=== PATIENT | male | born 1970 | race Caucasian/White ===

== ENCOUNTER 2017-07-26 16:14 | Emergency (ER) | payer MEDICARE ==
--- NOTE | ~2017-07-26 | CR72 ---
[facility]. [facility] A Service [facility] RADIOLOGY TEXT RESULTS PATIENT: BRISA TEMPLE LOCATION: SED : 70 UNIT #: [id number] AGE: [address]: RANDY GALARZA SEX: M ORDER DR: [id number] [place] [address] [id number] E MR#: [id number] Acc #: [id number] NAME: BRISA TEMPLE : 1970 SEX: M STUDY DATE/TIME: 07/26/2017 17:28 UNIT: SED ROOM: STUDY DESCRIPTION: CR Chest Single View Portable Attending Physician: Randy Galarza Aprn Ordering Physician: Randy Galarza Aprn Primary Care Physician: Randy Gordon A.P.R.N. MEDICAL IMAGING REPORT This report is preliminary unless electronic signature is present. EXAM Portable chest. INDICATIONS Cough. Mid-back pain since yesterday. FINDINGS A portable view of the chest was obtained. The patient is in the lordotic position. The lungs appear clear. The heart size and vascularity are normal. IMPRESSION The study is somewhat limited by the patient's large size and by the fact that he is in the extremely lordotic position. No infiltrates are visible. Increased density in the right medial costophrenic angle is probably due to normal structures such as pericardial fat. Possible upright PA and lateral views of the chest would be useful. Dictated by... Pepe España M.D. THIS IS AN ELECTRONICALLY VERIFIED REPORT Pepe España M.D. at 07/27/2017 7:57 PM FREDY/terrence TD: 07/27/2017 13:25 JOB #: [id number] [facility] A Service [facility] RADIOLOGY TEXT RESULTS PATIENT: BRISA TEMPLE LOCATION: SED : 70 UNIT #: [id number] AGE: [address]: RANDY GALARZA SEX: M ORDER DR: MEDICAL IMAGING REPORT Page 1 of 1
--- NOTE | ~2017-07-26 | EKG ---
PATIENT: BRISA TEMPLE UNIT #: [id number] Ventricular Rate: 90 BPM Atrial Rate: 90 BPM P-R Interval: 158 ms QRS Duration: 68 ms Q-T Interval: 366 ms QTC Calculation(Bezet): 447 ms P Hickman: 56 degrees Calculated R Hickman: 51 degrees Calculated T Hickman: 52 degrees Diagnosis Line: Normal sinus rhythm Diagnosis Line: Normal ECG Diagnosis Line: When compared with ECG of 28-MAY-2012 21:00, Diagnosis Line: No significant change was found Diagnosis Line: Confirmed by SIERRA JOHN MD ([id number]) on 07/31/2017 Diagnosis Line: 7:28:10 PM INTERPRETING MD: DORA MURILLO
[~2017-07-26 16:14] MED LIST: ALBUTEROL17 GM INH; AMLODIPINE BESYL5 MG PO; ANTIDIARRHEAL2 MG PO; BENZONATATE PO; LIPITOR PO; LOPRESSOR PO; LORTAB 5/500 TA1 TA2 PO; LORTAB 7.5-5001 TAB PO; NAPROSYN375 MG PO; OMEPRAZOLE40 M1 PO; PRINIVIL40 MG PO; ZYRTEC10 M2 PO
[2017-07-26] MEDS ORDERED: ANTIDEPRESSANT PO (16:25)
[2017-07-26] MEDS ORDERED: CHOLESTEROL MED PO (16:25)
[2017-07-26] MEDS ORDERED: METFORMIN PO (16:26)
[2017-07-26 17:25] LABS: POC - CKMB <1.0 ng/mL (0.0-7.9); POC - MYOGLOBIN 35.3 ng/mL (0.0-169.0); POC - TROPONIN <0.05 ng/mL (<=0.05)
[2017-07-26 17:43] LABS: BASOPHIL# 0.1 X10e3 (0-0.3); BASOPHIL% 1.1 % (0-2.5); EOSINOPHIL# 0.1 X10e3 (0-0.7); EOSINOPHIL% 1.2 % (0.0-7.0); HEMATOCRIT 50.2 % (38.0-50.0); LYMPHOCYTE% 10.7 % (17.0-45.0); MEAN CELL VOLUME 91.2 FL (83-96); MEAN CORPUSCULAR HEMOGLOBIN 30.9 PG (28-34); MEAN CORPUSCULAR HGB CONC 33.8 g/dL (30-36); MEAN PLATELET VOLUME 8.9 FL (6.5-11.5); MONOCYTE# 0.6 X10e3 (0-1.0); MONOCYTE% 6.9 % (3.0-12.0); NEUTROPHIL# 7.3 X10e3 (1.5-7.1); NEUTROPHIL% 80.1 % (40-75); PLATELET COUNT 254 X10e3 (140-420); RED CELL DISTRIBUTION WIDTH 14.3 % (11.0-15.5); WHITE BLOOD COUNT 9.2 X10e3 (4.0-10.5)
[2017-07-26 17:45] LABS: DIFF IND NO
[2017-07-26 18:02] LABS: ALBUMIN SERUM 4.1 g/dL (3.5-5.0); BILIRUBIN, DIRECT 0.2 mg/dL (0.0-0.2); BILIRUBIN,INDIRECT 0.5 mg/dL (0.0-0.9); BILIRUBIN,TOTAL 0.7 mg/dL (0.2-2.0); BUN/CREATININE RATIO 7.14; CALCIUM SERUM 9.4 mg/dL (8.4-10.2); CREATININE SERUM 0.7 mg/dL (0.6-1.4); GLOM FILT RATE Estimated 112.4 mL/min (>60); POTASSIUM 4.4 mmol/L (3.5-5.1); PROTEIN TOTAL SERUM 7.5 g/dL (6.0-8.3)
== END 2017-07-26 19:12 | disposition home or self-care (01) ==
LOC: SED 16:14
PROVIDERS: Nurse Practitioner Family
DX: R11.2 Nausea with vomiting, unspecified (principal); R51 Headache; R07.9 Chest pain, unspecified; R05 Cough; I10 Essential (primary) hypertension; E11.9 Type 2 diabetes mellitus without complications; F32.9 Major depressive disorder, single episode, unspecified; F17.210 Nicotine dependence, cigarettes, uncomplicated; Z79.899 Other long term (current) drug therapy
CPT/HCPCS: 36415; 71010; 80048; 80076; 82553; 83690; 83874; 84484; 85025; 93005; 96374; 99285; J2405